=== PATIENT | female | born 2000 | race Two or more races ===

== ENCOUNTER 2024-06-27 09:05 | Emergency (ER) | payer OTHER ==
[~2024-06-27] VITALS: Ht 152.4 cm; Wt 44.5 kg
[2024-06-27] MEDS ORDERED: ONDANSETRON HCL 2 MG/ML VIAL ONE (11:14)
[2024-06-27] MEDS ORDERED: FAMOTIDINE/PF 20 MG/2 ML VIAL ONE (11:14)
[2024-06-27] MEDS ORDERED: HYOSCYAMINE SULFATE 0.125 MG TAB.SUBL ONE (11:14)
[2024-06-27] MEDS ORDERED: HYOSCYAMINE SULFATE 0.125 MG TAB.SUBL SL ONE (11:15)
[2024-06-27] MEDS ORDERED: FAMOTIDINE/PF 20 MG/2 ML VIAL IV PUSH ONE (11:15)
[2024-06-27] MEDS ORDERED: ONDANSETRON HCL 2 MG/ML VIAL IV ONE (11:15)
[2024-06-27 11:42] LABS: HEMATOCRIT 39.9 % (36.0-45.00); MEAN CELL VOLUME 86.6 fL (80.00-100.00); MEAN CORPUSCULAR HEMOGLOBIN 30.4 pg (27.00-32.0); MEAN CORPUSCULAR HGB CONC 35.1 g/dl (32.0-36.0); PLATELET COUNT 298 K/uL (150-450); RED BLOOD COUNT 4.61 M/uL (4.00-6.00); RED CELL DISTRIBUTION WIDTH 12.7 % (11.5-14.5)
[2024-06-27] MEDS ORDERED: RINGERS SOLUTION,LACTATED 1,000 ML IV SCH (11:45)
[2024-06-27 12:03] LABS: CALCIUM 9.3 mg/dL (8.5-10.1); CREATININE SERUM 0.69 mg/dL (0.55-1.02); GFR 104.52; POTASSIUM 3.45 mEq/L (3.5-5.1)
== END 2024-06-27 15:42 | disposition home or self-care (01) ==
LOC: ER 09:07
PROVIDERS: Emergency Medicine
DX: K52.89 Other specified noninfective gastroenteritis and colitis (principal)

== ENCOUNTER 2024-08-22 12:41 | Outpatient (CLI) | payer OTHER | END 2024-08-22 12:56 | disposition home or self-care (01) | LOC: TOM 12:41 | PROVIDERS: ATTEND Otolaryngology Otology & Neurotology | DX: H74.42 Polyp of left middle ear (principal) ==